=== PATIENT | female | born 1990 ===

== ENCOUNTER 2018-02-26 07:07 | Outpatient (CLI) | payer BC | END 2018-02-26 07:08 | disposition home or self-care (01) | LOC: BICULT 07:07 | PROVIDERS: ATTEND Family Medicine | DX: R10.31 Right lower quadrant pain (principal); R16.0 Hepatomegaly, not elsewhere classified | CPT/HCPCS: 76700; 76856 ==

== ENCOUNTER 2019-03-17 08:02 | Outpatient (CLI) | payer BC ==
--- NOTE | 2019-03-17 08:50 | ULT ---
Exam: Transabdominal and endovaginal pelvic ultrasound HISTORY:Pelvic pain COMPARISON: None TECHNIQUE: Transabdominal and endovaginal imaging of the pelvis is performed. Ovaries are interrogate d with grayscale, color flow, Doppler imaging and spectral wave form analysis FINDINGS: Uterus: Hypoechoic mass in the left aspect uterus measuring 0.9 x 1.4 x 1.0 cm Uterus measurin.4 x 3.1 x 8.3 cm. Endometrium: Homogeneous echotexture. Endometrium diameter: 1.2 cm. Small amount of fluid in the lower uterine segment. Free fluid: None Left ovary: Left ovary is not appreciated. Left ovary measurements: Cannot be measured Right ovary: Large anechoic focus in the right adnexa likely representing a cyst measuring 2.9 x 2.9 x 2.6 cm. Right ovary measurement: 3.8 x 2.7 x 3.4 cm Ovarian Doppler: Vascular flow to the right ovary. IMPRESSION: 1. Small hypoechoic mass in the left uterus. Uterine leiomyoma is favored. 2. Right ovarian cyst. Follow-up ultrasound and 8 weeks to ensure resolution. 3. Nonspecific free fluid in the cervix.
== END 2019-03-17 08:03 | disposition home or self-care (01) ==
LOC: BICULT 08:02
PROVIDERS: ATTEND Family Medicine
DX: N83.201 Unspecified ovarian cyst, right side (principal); R93.89 Abnormal findings on diagnostic imaging of other specified body structures
CPT/HCPCS: 76856